=== PATIENT | male | born 1950 | race Caucasian/White ===

== ENCOUNTER 2017-01-12 14:00 | Inpatient (IN) | payer MEDICARE, OTHER ==
[2017-02-05] MEDS ORDERED: CELECOXIB 100 MG CAPSULE PO ONE (06:00)
[2017-02-05] MEDS ORDERED: METOCLOPRAMIDE 10 MG TABLET PO ONE (06:00)
[2017-02-05] MEDS ORDERED: ACETAMINOPHEN 1,000 MG/100 ML BTL IV ONE (06:00)
[2017-02-05] MEDS ORDERED: VANCOMYCIN HCL 1,000 MG in 0.9 % SODIUM CHLORIDE 250ML 250 ML IVPB ONE (06:00)
[2017-02-05] MEDS ORDERED: MECLIZINE 25 MG TABLET PO ONE (06:00)
[2017-02-05] MEDS ORDERED: FAMOTIDINE 20MG TABLET PO ONE (06:00)
[2017-02-05 12:40] LABS: INR 1.08; PROTHROMBIN TIME (PATIENT) 11.7 SECONDS (9.5-12.1)
[2017-02-05 13:50] LABS: ABO GROUP O; ANTIBODY SCREEN NEGATIVE (NEGATIVE); RH TYPE POSITIVE
[2017-02-05] MEDS ORDERED: LIDOCAINE 2% MDV (20MG/ML) 20ML VIAL IV ONE (14:00)
[2017-02-05] MEDS ORDERED: PROPOFOL 10 MG/ML VIAL IV ONE (14:00)
[2017-02-05] MEDS ORDERED: TRANEXAMIC ACID 1,000 MG/10 ML ML IV ONE (14:00)
[2017-02-05] MEDS ORDERED: VANCOMYCIN HCL 1 GM VIAL IVPB ONE (14:00)
[2017-02-05] MEDS ORDERED: BUPIVACAINE 0.5% W/EPI MPF 30 ML VIAL IVP ONE (14:00)
[2017-02-05] MEDS ORDERED: KETOROLAC 30 MG/ML VIAL IVP ONE (14:00)
[2017-02-05] MEDS ORDERED: *PACU ONLY* KETAMINE HCL 10 MG/ML (20ML) VIAL IV ONE (14:00)
[2017-02-05] MEDS ORDERED: NALOXONE 0.4 MG/1 ML VIAL IVP PRN (14:55)
[2017-02-05] MEDS ORDERED: ACETAMINOPHEN W/ CODEINE 300MG/60MG TABLET PO PRN ×2 (14:55)
[2017-02-05] MEDS ORDERED: ZOLPIDEM TARTRATE 5 MG TABLET PO PRN (14:55)
[2017-02-05] MEDS ORDERED: DEXTROSE 5 % AND 0.9 % NACL 1,000 ML IV PRN (14:55)
[2017-02-05] MEDS ORDERED: PROMETHAZINE HCL 12.5 MG in 0.9 % SODIUM CHLORIDE 100ML 50 ML IVPB PRN (14:55)
[2017-02-05] MEDS ORDERED: ACETAMINOPHEN 325 MG TAB PO PRN (14:55)
[2017-02-05] MEDS ORDERED: METOCLOPRAMIDE HCL 10 MG/2 ML VIAL IVP PRN (14:55)
[2017-02-05] MEDS ORDERED: AL HYDROX/MAG HYDROX 30ML UD PO PRN (14:55)
[2017-02-05] MEDS ORDERED: ACETAMINOPHEN W/ CODEINE 300MG/30MG TABLET PO PRN ×2 (14:55)
[2017-02-05] MEDS ORDERED: BISACODYL 10 MG SUPP RC PRN (14:55)
[2017-02-05] MEDS ORDERED: ONDANSETRON HCL IV 4 MG/2 ML VIAL IVP PRN (14:55)
[2017-02-05] MEDS ORDERED: HYDROMORPHONE HCL 2 MG/ML VIAL IM PRN (14:55)
[2017-02-05] MEDS ORDERED: DIPHENHYDRAMINE HCL 25 MG CAPSULE PO PRN (14:55)
[2017-02-05] MEDS ORDERED: HYDROCODONE/APAP 5/325MG TABLET PO PRN ×2 (14:55)
[2017-02-05] MEDS ORDERED: HYDROMORPHONE HCL 1 MG/ML CPJ IM PRN (14:55)
[2017-02-05] MEDS ORDERED: MORPHINE SULFATE 5 MG/ML PFS IVP PRN ×4 (14:55)
[2017-02-05] MEDS ORDERED: TRAMADOL HCL 50 MG TABLET PO PRN ×2 (14:55)
[2017-02-05] MEDS ORDERED: HYDROCODONE/APAP 7.5/325MG TABLET PO PRN ×2 (14:55)
[2017-02-05] MEDS ORDERED: MAGNESIUM HYDROXIDE 30 ML UDC PO PRN (14:55)
[2017-02-05] MEDS ORDERED: KETOROLAC 30 MG/ML VIAL IVP PRN ×2 (14:55)
[2017-02-05] MEDS ORDERED: VANCOMYCIN HCL 1,000 MG in 0.9 % SODIUM CHLORIDE 250ML 250 ML IVPB SCH (15:00)
[2017-02-05] MEDS ORDERED: WARFARIN 1 MG TABLET PO SCH (16:00)
[2017-02-05] MEDS ORDERED: METOPROLOL SUCC 50 MG TABLET PO ONE (18:49)
[2017-02-05] MEDS: DOCUSATE SODIUM 100 MG CAPSULE PO SCH (21:29)
[2017-02-05] MEDS: FERROUS SULFATE 325 MG TAB PO SCH (21:30)
[2017-02-05] MEDS: GABAPENTIN 300 MG CAPSULE PO SCH (21:30)
[2017-02-06] MEDS: VANCOMYCIN HCL 1,000 MG in 0.9 % SODIUM CHLORIDE 250ML 250 ML IVPB SCH ×2 (02:30→13:53)
[2017-02-06 06:40] LABS: INR 1.04; PROTHROMBIN TIME (PATIENT) 11.2 SECONDS (9.5-12.1)
[2017-02-06 06:52] LABS: HEMATOCRIT 40.6 % (42.0-52.0); HEMOGLOBIN 13.4 gm/dl (14.0-18.0)
[2017-02-06] MEDS ORDERED: PATIENT OWN MED: PO SCH ×2 (08:30→09:43)
[2017-02-06] MEDS: GABAPENTIN 300 MG CAPSULE PO SCH (09:38)
[2017-02-06] MEDS: FERROUS SULFATE 325 MG TAB PO SCH (09:38)
[2017-02-06] MEDS: DOCUSATE SODIUM 100 MG CAPSULE PO SCH (09:38)
[2017-02-06] MEDS ORDERED: CELECOXIB 100 MG CAPSULE PO SCH (10:00)
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
--- NOTE | 2017-02-06 14:40 | Physical Therapy Tx Note ---
Physical Therapy Tx Note - Treatment Note Tolerated: Good (Patient still doing very well; pain under control with meds and receiving last antibiotic treatment. Feels ready to go home with and seems ready from physical standpoint.) Total Time Spent With Patient: 20 Physical Therapy Tx Note: Detail (Patient seen in room; already standing as returning from bathroom so ambulated into [place]en with standard walker and CGA about 100 feet then back to room with WBAT and good technique (improved from this am). Receiving last antibiotic now so will be ready to be discharged after that. Encouraged continue knee ROM when home for good flexibility.) Physical Therapy Problem List: Detail (Some impairment in mobility and gait yet , transfers but doing quite well first day after surgery.) Physical Therapy Goals: Independent with mobility for bed, transfers and with gait with family's assistance for home activity and community distances for when goes to rehab appts. Also needs to be safe for home with 's assist only. Prognosis: Good (Very good results with surgery and rehab. Patient has passed all goals and ready for discharge from PT and probably going home with this afternoon.) Physical Therapy Plan: Continue PT today BID for more mobility and gait, transfers. Has already passed stairs. If needs to stay overnight, will see patient in the am for more rehab.
--- NOTE | 2017-02-12 12:20 | Operative Note ---
DATE OF SURGERY: 02/05/2017 PREOPERATIVE DIAGNOSIS: Left knee arthrosis. POSTOPERATIVE DIAGNOSIS: Left knee arthrosis. OPERATION: Left total knee arthroplasty. Surgeon: Clarence Lopez MD Anesthesia: Spinal. Anesthesia Provider: DAMARI Hill COMPLICATIONS: None. Estimated Blood Loss: Minimal. TOURNIQUET TIME: 60 minutes OPERATIVE FINDINGS: [id number] knee arthrosis. COMPONENTS PLACED: A 2 g vancomycin cemented [employer] Journey II Polar arthroplasty system, size 7 femoral component, size 8 tibial component, an 11 mm thick poly insert, and a 35 mm cemented patellar component. INDICATIONS FOR OPERATION: This is a 66-year-old male who has had persistent pain in knee for several years and is now scheduled for a knee replacement. I explained all risks and benefits in detail for her diagnosis and procedures including but not limited to infection, nerve injury, vessel injury, pain, numbness, tingling, periprosthetic fracture, need for resection arthroplasty, components infected or loosened, blood clot, need for anticoagulation to prevent blood clots, risks associated with the medication, and all of his questions were clearly answered, his course was outlined and he agreed to proceed. PROCEDURE: The patient brought to the OR, placed in the supine position, prepped for surgery. Spinal anesthesia was induced. The left lower extremity and knee prepped and draped in sterile fashion. Prepped the left knee again with Chloraprep and draped and timeout was performed. Next, the leg was exsanguinated with [place]. The knee was flexed, tourniquet inflated to 250 mmHg pressure. Skin and subcutaneous tissues dissected down, incised the capsule medially along the medial border of the patella to the tibial tubercle. Incised the vastus medialis in line with its fibers, in a mid vastus approach. Everted the patella, elevated the capsule medially. Drilled intracondylar drill hole. He had severe [id number] arthrosis. Inserted intramedullary guide christian, 6 degree cutting block, aligned distal femoral condyles and we pinned it in the +2 mm position and cut the distal femoral condyles. Next, we placed a sizing jig size 7. Through the previously-placed pin holes, placed the size 7 five-in-one cutting jig, centered it, pinned it, centered it first and aligned it so the anterior cut would come out flush without notching. We cut the anterior cut. Once we had a good cut there, we then pinned it and completed the chamfer cut in the usual fashion. Next, attention was turned to the tibia. We placed the axial line of the jig on the tibia, seated the spikes in the tubercle groove 2 fingerbreadths distally off the tibia referencing for a 7 mm cut off the higher lateral plateau. In this, the cutting jig provisionally placed. Rechecked alignment using guide christian and crosspinned the tibial cutting jig, completeting its fixation, and then we cut the tibia. Next, we removed osteophytes of posterior femoral condyles. Next, checked flexion and extension gaps, this was symmetric with 11 mm thick poly insert. With the knee in flexion, we sized baseplate to size 8, replaced all trial components, set the rotations and placed the knee in extension, using alignment christian centered on the hip joint and ankle joint, Marked with electrocautery gandhi on the anterior tibial cortex off the laser gandhi on the tibial baseplate. Next, we measured patella to be 23 mm, set the cutting jig at 14 mm to allow for a 9 mm thick insert. We cut the patella. Chamfered off lateral patellar facet, rechecked right on 14, sized a 35, medialized as much as possible and drilled 3 peg holes. Trialed the patella. Mixed cement. Patella tracked nicely in full extension and flexion to 140 degrees, and again, symmetrical flexion-extension gaps. Next, we mixed cement. We put the knee in flixion and seated tibial baseplate with the previously-placed elevtrocautery gandhi , and then pinned it in place, and then reamed out a keel punch and keel hole. Next, we changed gloves and gowns and clean sheets and copiously irrigated with pulse lavage and mix solution. Impacted down the tibial component and then the femoral component. Placed the trial tibial insert and held the knee in extension until cement hardened and then clamped down the patellar component. Once the cement hardened, we put the knee in flexion, distracted with bone hook and sponge and removed all excess cement around the edges of the components. We then injected a mixture of 0.5% Marcaine with epi, tranexamic acid, and Exparel several sticks, 2-3 cm apart, 2-3 cm deep throughout the posterior capsule, medial and lateral periosteum, vastus areas. Then we distracted the knee with bone hook and sponge, inserted the real poly insert and verified it was interlocked medially and laterally, Final range of motion and stability were the same. We placed a bone plug in femoral canal hole as well. Next, we put the knee in flexion, used running #2 Quill suture, closed the skin with 2-0 Vicryl and jose r, sterile dressing applied. Tolerated the procedure well. No complications. Sponge and needle counts correct. To Recovery Room stable. Will be discharged back to floor and likely discharge in 1-2 days. JORDANAD
== END 2017-02-06 17:10 | disposition home or self-care (01) | DRG 470 ==
LOC: MEDSURG 02-05 12:10
PROVIDERS: ADMIT Orthopaedic Surgery; ATTEND Orthopaedic Surgery
PROC: 0SRD0J9 Replacement of Left Knee Joint with Synthetic Substitute, Cemented, Open Approach (ICD-10-PCS; principal; 2017-02-05 14:30)
DX: M17.12 Unilateral primary osteoarthritis, left knee (principal); I48.2 Chronic atrial fibrillation; Z79.01 Long term (current) use of anticoagulants; I10 Essential (primary) hypertension; E75.5 Other lipid storage disorders
CPT/HCPCS: 85014; 85018; 85610; 86850; 86900; 86901; 97116; 97165; J1885; J7042; J7050